=== PATIENT | female | born 1975 | race Caucasian/White ===

== ENCOUNTER → 2021-05-15 | Outpatient (CLI) | payer BC ==
--- NOTE | 2021-05-16 07:24 | PFTRPT ---
Site: [facility], [address] [place], [address] ID: [id number] Name: DEIDRA CASTILLO Visit Date: 05/15/2021 Second ID: [id number] Referring Doctor: Danay Walls M.D. Reviewing Doctor: Rodrigo Zazueta MD Brown Sourer: Sarahi BARRIENTOS RRT Age: 45 : 1975 Sex: Female Race: Height: 63.00 Inches Weight: 184.00 Lbs BSA: 1.87 Order IDs: [id number] Requested Test(s): <RESP-PFT.PFT> Diagnosis: J84.9 test meet the ATS standards for acceptability and repeatability. Review Status: Not Reviewed Pre-Bronch Post-Bronch Pred Actual %Pred Actual %Chng SPIROMETRY FVC (L) 3.46 2.89 83 FEV1 (L) 2.76 2.43 88 FEV1/FVC (%) 81 84 103 FEF 25% (L/sec) 5.17 5.18 100 FEF 50% (L/sec) 3.98 3.46 86 FEF 75% (L/sec) 1.49 1.13 75 FEF 25-75% (L/sec) 2.79 2.67 95 FEF Max (L/sec) 6.65 5.41 81 FIVC (L) 2.92 FIF 50% (L/sec) 3.83 4.18 109 FIF Max (L/sec) 4.28 Expiratory Time (sec) 6.87 Back Extrap Vol (L) 0.09 Time To FEFmax (sec) 0.093 LUNG VOLUMES SVC (L) 3.21 2.90 90 IC (L) 2.17 2.54 116 ERV (L) 1.04 0.36 34 DIFFUSION DLCOunc (ml/min/mmHg) 22.58 19.23 85 DLCOcor (ml/min/mmHg) 22.58 21.71 96 DL/VA (ml/min/mmHg/L) 4.61 5.19 112 VA (L) 4.90 4.19 85 BHT (sec) 9.79 IVC (L) 2.89 TLC (SB) (L) 4.34 BLOOD GASES Hgb (gm/dL) 10.2
== END | disposition home or self-care (01) ==
LOC: M CARPUL 13:18
PROVIDERS: ATTEND Internal Medicine Pulmonary Disease
DX: J84.9 Interstitial pulmonary disease, unspecified (principal)

== ENCOUNTER → 2021-12-13 | Outpatient (CLI) | payer BC | LOC: M CARPUL 11:06 | DX: J84.9 Interstitial pulmonary disease, unspecified (principal) ==

== ENCOUNTER → 2022-05-16 | Outpatient (CLI) | payer BC | LOC: M CARPUL 09:58 | PROVIDERS: ATTEND Physician Assistant | DX: J84.9 Interstitial pulmonary disease, unspecified (principal) ==

== ENCOUNTER → 2022-09-12 | Outpatient (CLI) | payer BC | LOC: M CARPUL 10:53 | PROVIDERS: ATTEND Physician Assistant | DX: J84.9 Interstitial pulmonary disease, unspecified (principal) ==

== ENCOUNTER → 2023-04-24 | Outpatient (CLI) | payer BC | LOC: M CARPUL 09:52 | PROVIDERS: ATTEND Physician Assistant | DX: J84.9 Interstitial pulmonary disease, unspecified (principal) ==

== ENCOUNTER → 2024-06-03 | Outpatient (CLI) | payer BC | LOC: M CARPUL 11:54 | PROVIDERS: ATTEND Physician Assistant | DX: J84.9 Interstitial pulmonary disease, unspecified (principal) ==

== ENCOUNTER → 2024-11-05 | Outpatient (CLI) | payer BC | LOC: M SLEEP 20:00 | PROVIDERS: ATTEND Internal Medicine Pulmonary Disease | DX: R06.83 Snoring (principal) ==